=== PATIENT | female | born 1950 | race Two or more races ===

== ENCOUNTER 2016-10-12 07:30 | Inpatient (IN) | payer OTHER, MEDICAID ==
[~2016-10-12] VITALS: Ht 157.5 cm; Wt 62.1 kg
[2016-10-12] VITALS (14 sets, daily range): BP systolic 112–174; BP diastolic 40–87
--- NOTE | 2016-10-12 07:40 | NUR ---
CALLED [facility] SPOKE TO OXANA SAUCEDA: CODE STROKE. DR. TATUM TO CALL BACK
--- NOTE | 2016-10-12 07:40 | NUR ---
RECEIVED VERBAL ORDERS FROM DR. GREEN FOR LIDOCAINE 100MG IVP, ROCURONIUM 100MG IVP AND ETOMIDATE 20MG IVP. ALL ORDERS CARRIED OUT.
--- NOTE | 2016-10-12 07:42 | NUR ---
RSI DONE BY DR. GREEN, RT AT BS. ET SIZE 7 AT 25 CM LIP LINE POSITIVE C02 COLOR CHANGE AT 100%, BILATERAL BREATH SOUNDS PRESENT.
--- NOTE | 2016-10-12 07:43 | NUR ---
DR. TATUM RETURNED AND IS SPEAKING TO DR. GREEN.
--- NOTE | 2016-10-12 07:45 | NUR ---
PT LEFT FOR CT.
[2016-10-12] MEDS ORDERED: CT SWABBABLE VALVE TRANS SET 1 EA INFUS.SET MC ONE (07:48)
[2016-10-12] MEDS ORDERED: IV NS 0.9% 250 ML IV ONE (07:48)
[2016-10-12] MEDS ORDERED: IOHEXOL-350 100 ML VIAL IV ONE (07:48)
--- NOTE | 2016-10-12 08:05 | NUR ---
PT RETURNED FROM CT.
--- NOTE | 2016-10-12 08:06 | NUR ---
DR. NARVAEZ, RADIOLOGY, CALLED RE: CT FINDINGS.
[2016-10-12 08:07] LABS: BASOPHILS % (AUTO) 0.6 % (0.0-2.0); EOSINOPHILS # (AUTO) 0.1 /CMM (0.0-0.7); EOSINOPHILS % (AUTO) 2.1 % (0.0-6.0); HEMATOCRIT 35 % (33-45); HEMOGLOBIN 12.2 g/dL (11.5-14.8); LYMPHOCYTES # (AUTO) 1.8 /CMM (0.8-4.8); LYMPHOCYTES % (AUTO) 32.1 % (20.0-44.0); MEAN CORPUSCULAR HEMOGLOBIN 34 PG (26.0-33.0); MEAN CORPUSCULAR HGB CONC 35 g/dl (31.0-36.0); MEAN CORPUSCULAR VOLUME 97 fL (82-100); MONOCYTES # (AUTO) 0.3 /CMM (0.1-1.30); MONOCYTES % (AUTO) 5.3 % (2.0-12.0); NEUTROPHILS # (AUTO) 3.3 /CMM (1.8-8.9); NEUTROPHILS % (AUTO) 59.9 % (43.0-81.0); PLATELET COUNT (AUTO) 210 /CMM (150-450); RDW COEFFICIENT OF VARIATION 13.5 (11.5-15.0); RED BLOOD CELL COUNT(AUTO) 3.63 MIL/uL (4.0-5.2); WHITE BLOOD COUNT (AUTO) 5.6 K/uL (4.3-11.0)
[2016-10-12 08:08] LABS: INR 0.97 (0.87-1.13); PROTHROMBIN TIME 10.1 SECS (9.5-12.7)
[2016-10-12 08:09] LABS: POTASSIUM 3.9 mmol/L (3.5-5.1)
[2016-10-12 08:10] LABS: CALCIUM, SERUM 9.3 mg/dL (8.5-10.1); CREATININE 2.7 mg/dL (0.6-1.3)
[2016-10-12] MEDS ORDERED: PROPOFOL 100 ML IV ONE (08:33)
[2016-10-12] MEDS ORDERED: IV SET PRIMARY PUMP SET 1 EA INFUS.SET MC ONE ×2 (08:33→14:48)
--- NOTE | 2016-10-12 08:35 | NUR ---
MRI APPROVED BY DR. MONTALVO.
[2016-10-12] MEDS: PROPOFOL 100 ML IV PRN (08:45)
--- NOTE | 2016-10-12 08:45 | NUR ---
PROPOFOL STARTED PER MD ORDERS. 5MCG/KG/HR, TITRATE PER PROTOCOL. PATIENT'S VITALS STABLE. WILL CONTINUE TO MONITOR.
--- NOTE | 2016-10-12 08:50 | NUR ---
TELE NEURO MONITOR AT BEDSIDE, MD CONFERENCED IN. UNABLE TO ASSESS NEURO STATUS. PATIENT IS SEDATED AT THIS TIME. PUPILS ARE EQUAL AND REACTIVE AT THIS TIME.
--- NOTE | 2016-10-12 08:52 | NUR ---
DR. GREEN IS SPEAKING TO DR. TATUM - NEURO AT [facility]
[2016-10-12 09:05] LABS: ABG BASE EXCESS 3.7 mmol/L; ABG OXYGEN SATURATION 99.1 % (92.0-98.5); ABG PCO2 28.8 mmHg (35.0-45.0); ABG PH 7.559 (7.350-7.450); ABG PO2 396.9 mmHg (75.0-100.0); AaDO2 287.3 mmHg; COHb 0.1 % (0.5-1.5); MetHb 0.5 % (0.0-1.5); O2Hb 98.5 % (94.0-97.0); PEEP,BG 0 cm H2O; SITE, ABG Left Brachial; VENT MODE, BG AC 16 500 100%
--- NOTE | 2016-10-12 09:05 | NUR ---
ABG'S RESULTED, VENT CHANGES MADE PER RT. WILL REASSESS
--- NOTE | 2016-10-12 09:15 | NUR ---
CALLED ARIAN GUEVARA RE: PT.
--- NOTE | 2016-10-12 09:15 | NUR ---
SPOKE TO VALERY, AT [facility].
[2016-10-12] MEDS ORDERED: OLAN5TAB6 PO (09:20)
[2016-10-12] MEDS ORDERED: GLIP10TA11 PO (09:20)
[2016-10-12] MEDS ORDERED: METO-306 PO (09:20)
[2016-10-12] MEDS ORDERED: DONE5TAB3 PO (09:20)
[2016-10-12] MEDS ORDERED: ATOR20TA PO (09:20)
[2016-10-12] MEDS ORDERED: CALC667C6 PO (09:20)
[2016-10-12] MEDS ORDERED: FURO80TA3 PO (09:20)
[2016-10-12] MEDS ORDERED: OMEP20TA68 PO (09:20)
[2016-10-12] MEDS ORDERED: ASPI81TA2 PO (09:20)
[2016-10-12] MEDS ORDERED: AMLO10TA2 PO (09:20)
--- NOTE | 2016-10-12 09:20 | NUR ---
RT NOTE ASSISTED MD WITH INTUBATION. PT INTUBATED WITH SIZE 7.0 ETT SECURED @21CM LIP LINE. POSITIVE C02 COLOR CHANGE. BILATERAL B/S SOUNDS NOTED. AIRWAY IS SECURE AND PATENT. PT PLACED ON MD ORDERED VENT SETTINGS. ALARMS ARE SET AND AUDIBLE PER PROTOCOL. [facility] V[facility] PLUGGED INTO RED OUTLET. NO RESPIRATORY DISTRESS NOTED AT THIS TIME. WILL CONTINUE TO MONITOR.
[2016-10-12 09:23] LABS: BILIRUBIN,URINE Negative (NEGATIVE); BLOOD, URINE Small Ery/uL (NEGATIVE); COLOR,URINE Light yellow (YELLOW); KETONES,URINE Negative (NEGATIVE); LEUKOCYTE ESTERASE ,URINE Negative (NEGATIVE); NITRITE, URINE Negative (NEGATIVE); PH,URINE 8.5 (5.0-8.0); PROTEIN,URINE 100 mg/dl (NEGATIVE); UGLUCOSE Negative (NEGATIVE); UROBILINOGEN,URINE 0.2 EU/dL (0.2)
[2016-10-12 09:26] LABS: APPEARANCE,URINE Hazy (CLEAR)
--- NOTE | 2016-10-12 09:26 | NUR ---
PATIENT MORE AWAKE, MOVING EXTREMITIES. HR INCREASED TO 125. PROPOFOL INCREASED TO 10MCG/KG/HR. WILL CONTINUE TO MONITOR.
[2016-10-12] MEDS ORDERED: ETOMIDATE 2 MG/ML VIAL IV ONE (09:30)
[2016-10-12] MEDS ORDERED: LIDOCAINE 100MG/5ML DISP SYR IV ONE (09:30)
[2016-10-12] MEDS ORDERED: ROCURONIUM BROMIDE 50 MG/5 ML IV ONE (09:30)
[2016-10-12 09:34] LABS: BACTERIA,URINE None seen /HPF (None Seen); SQUAMOUS EPITHELIAL CELL,UR Few /HPF (None Seen); WBC,URINE 0-2 /HPF (0-3)
[2016-10-12] MEDS ORDERED: DC PROPOFOL WHEN EXTUBATED XX PRN (10:00)
--- NOTE | 2016-10-12 10:15 | NUR ---
PATIENT STILL MOVING AROUND, LOOKS UNCOMFORTABLE. INCREASED PROPOFOL TO 15 MCG/KG/HR.
--- NOTE | 2016-10-12 10:45 | NUR ---
PATIENT STILL MOVING AROUND, RESTLESS. VITALS REMAIN STABLE. INCREASED PROPOFOL TO 20 MCG/KG/HR. WILL CONTINUE TO MONITOR.
--- NOTE | 2016-10-12 12:05 | NUR ---
REPORT GIVEN TO KAMI DUNCAN FOR ICU ROOM 265.
--- NOTE | 2016-10-12 12:28 | NUR ---
PATIENT TRANSFERRED TO ICU 265 VIA STRETCHER, WITH RT AND RN.
[2016-10-12] MEDS ORDERED: PROPOFOL 100 ML IV PRN ×2 (13:30→15:00)
[2016-10-12] MEDS ORDERED: Z GUARD REMEDY 2 OZ OINT TP PRN (15:00)
[2016-10-12] MEDS ORDERED: ONDANSETRON HCL/PF 4 MG/2 ML VIAL IVP PRN (15:00)
[2016-10-12] MEDS: METOPROLOL SUCCINATE 50 MG TAB.SR.24H PO SCH (15:06)
[2016-10-12] MEDS: CALCIUM ACETATE 667 MG TABLET PO SCH (16:57)
[2016-10-12] MEDS: FUROSEMIDE 80 MG TABLET PO SCH (16:57)
[2016-10-12] MEDS: IV NS 0.9% 1,000 ML IV PRN (16:57)
--- NOTE | 2016-10-12 16:58 | NUR ---
MRI NOT DONE PATIENT ON VENT.
[2016-10-12 17:11] LABS: ABG BASE EXCESS 2.9 mmol/L; ABG OXYGEN SATURATION 97.9 % (92.0-98.5); ABG PCO2 31.3 mmHg (35.0-45.0); ABG PH 7.523 (7.350-7.450); ABG PO2 141.8 mmHg (75.0-100.0); AaDO2 107.4 mmHg; COHb 0.3 % (0.5-1.5); MetHb 0.9 % (0.0-1.5); O2Hb 96.7 % (94.0-97.0); PEEP,BG 5 cm H2O; SITE, ABG Right Brachial
--- NOTE | 2016-10-12 17:22 | NUR ---
BUSINESS SEGMENT MANAGER NOTE 1230: Admitted patient from ER, with Dx, AMS, r/o CVA, respiratory failure. With ETT 7/0 25cm lipline, to vent AC 14 400 FIO2 50%. Skin assessment done, no any wounds noted. SR 70's on the monitor. Vera cath intact, noted with clear yellow urine drained to BSD. Noted with LFA PIV infiltrated, started nwe PIV on LAC g20. Daughter at bedside, wanted to talk to MD, informed Dr. Fu. 1400: S/E by Dr. Fu, spoke with Lisa, daughter [phone] and all questions and concerns were answered. 1630: S/E by Dr. Calloway, with order to turn off sedation and will trial SIMV mode. 1700: ABG done, Dr. Calloway aware with order for extubation. 1715: Extubated patient as ordered, patient tolerated. Patient fully awake, able to do weak cough at this time. No stridor noted. Able to get small ice chips, will continue to monitor.
--- NOTE | 2016-10-12 20:04 | NUR ---
STATEMENT PROCESSOR. INITIAL ASSESSMENT. RECEIVED THE PT REST ON THE BED,PT IS LETHARGIC. OXYGEN 3L VIA NASAL CANNULA. SAT 98%. NO ACUTE DISTRESS NOTED. LAND TITLE EXAMINER SHOWING NSR. IV RT UPPER ARM AVFISTULLA, LT AC 20G. IVF NS 40 ML/H. FC PATENT. URINE DRAINING. AFEBRILE. HOB ELEVATED. TURN AND REPOSITION Q2H. WILL CONTINUE TO MONITOR VITALS.
[2016-10-12] MEDS: ATORVASTATIN 10 MG TABLET PO SCH (22:13)
[2016-10-12] MEDS: OLANZAPINE 5 MG/TAB.RAPDIS PO SCH (22:13)
[2016-10-13] VITALS (21 sets, daily range): BP systolic 110–146; BP diastolic 56–78
--- NOTE | 2016-10-13 03:47 | NUR ---
PROFESSIONAL HEALTHCARE REPRESENTATIVE. AM CARE. ORAL CARE, BED BATH GIVEN. LINEN CHANGED. REMAINING SAME OXYGEN TOLERATED WELL. SAT 98%, NO ACUTE DISTRESS NOTED. ALUMINUM CAN COLLECTOR SHOWING S TACH. HOB ELEVATED/ FC PATENT URINE DRAININGMHOB ELEVATED. TURN AND REPOSITION Q2H. IV LT HAND. IVF NS 125ML.H. WILL CRN AND REPOSITION Q2H, WILL CONTONUR TO MONIOTOR VITALS.
[2016-10-13 04:35] LABS: BASOPHILS % (AUTO) 0.6 % (0.0-2.0); EOSINOPHILS # (AUTO) 0.1 /CMM (0.0-0.7); EOSINOPHILS % (AUTO) 1.6 % (0.0-6.0); HEMATOCRIT 37 % (33-45); HEMOGLOBIN 12.4 g/dL (11.5-14.8); LYMPHOCYTES % (AUTO) 27.5 % (20.0-44.0); MEAN CORPUSCULAR HEMOGLOBIN 33 PG (26.0-33.0); MEAN CORPUSCULAR HGB CONC 34 g/dl (31.0-36.0); MEAN CORPUSCULAR VOLUME 98 fL (82-100); MONOCYTES # (AUTO) 0.6 /CMM (0.1-1.30); MONOCYTES % (AUTO) 8.8 % (2.0-12.0); NEUTROPHILS # (AUTO) 4.5 /CMM (1.8-8.9); NEUTROPHILS % (AUTO) 61.5 % (43.0-81.0); PLATELET COUNT (AUTO) 249 /CMM (150-450); RDW COEFFICIENT OF VARIATION 13.6 (11.5-15.0); RED BLOOD CELL COUNT(AUTO) 3.79 MIL/uL (4.0-5.2); WHITE BLOOD COUNT (AUTO) 7.3 K/uL (4.3-11.0)
[2016-10-13 04:55] LABS: ALBUMIN 3.2 g/dL (3.4-5.0); BILIRUBIN,TOTAL 0.7 mg/dL (0.2-1.0); CALCIUM, SERUM 9.1 mg/dL (8.5-10.1); CREATININE 4.8 mg/dL (0.6-1.3); PHOSPHORUS 4.5 mg/dL (2.5-4.9); POTASSIUM 3.9 mmol/L (3.5-5.1); TOTAL PROTEIN, SERUM 6.6 g/dL (6.4-8.2)
[2016-10-13 05:02] LABS: THYROID STIMULATING HORMONE 1.709 uIU/mL (0.358-3.74)
--- NOTE | 2016-10-13 08:00 | NUR ---
PT SLEEPING, EASILY ABUSABLE. PUPILS EQUAL, REACTIVE, NO FACIAL DROOP NOTED, BILAT UPPER AND LOWER EXTREMITIES ARE WEEK.
[2016-10-13] MEDS: FUROSEMIDE 80 MG TABLET PO SCH ×2 (09:35→17:26)
[2016-10-13] MEDS: METOPROLOL SUCCINATE 50 MG TAB.SR.24H PO SCH (09:35)
[2016-10-13] MEDS: AMLODIPINE BESYLATE 10 MG TABLET PO SCH (09:36)
[2016-10-13] MEDS: PANTOPRAZOLE 40 MG TABLET.DR PO SCH (09:36)
[2016-10-13] MEDS: DONEPEZIL 5 MG TABLET PO SCH (09:36)
[2016-10-13] MEDS: ASPIRIN 81 MG TAB.CHEW PO SCH (09:36)
[2016-10-13] MEDS: CALCIUM ACETATE 667 MG TABLET PO SCH ×3 (09:36→18:10)
[2016-10-13] MEDS ORDERED: KETOROLAC TROMETHAMINE 15 MG/ML VIAL IV ONE (11:18)
--- NOTE | 2016-10-13 15:30 | NUR ---
PT TO MRI BY MING. VSS, TOLERATING PROCEDURE WELL.
--- NOTE | 2016-10-13 16:25 | NUR ---
ASSISTANT INVENTORY MANAGER NOTES RECEIVED TRANSFER FROM ALYSSIA, REPORT GIVEN BY GEMINI DUNCAN. PATIENT IN STABLE CONDITION, NO APPARENT DISTRESS NOTED, DENIES PAIN, DENIES SOB.ON TELE MONITORING SR 68, IV LINE ON LEFT AC PATENT. BRUIT AND TRILL AUSCULTATED FROM GIOVANNA AV FISTULA. ALL NEEDS MET, KEPT CLEAN AND DRY. WILL CONTINUE TO MONITOR
--- NOTE | 2016-10-13 17:00 | NUR ---
PT TRANSFERRED TO TELE ROOM 308-2, VSS, DENIES PAIN, SOB.
[2016-10-13] MEDS: IV NS 0.9% 1,000 ML IV PRN (17:32)
--- NOTE | 2016-10-13 19:10 | NUR ---
ELECTRO MECHANICAL ASSEMBLER CLOSING NOTES PATIENT IN BED, A/O X 2, IN NO APPARENT DISTRESS. ALL DUE MEDS GIVEN, ALL NEEDS MET. IV LINE ON LEFT AC PATENT, INFUSING NS AT 40ML/HR. BRUIT AND THRILL UPON AUSCULTATION ON GIOVANNA AV FISTULA. WILL ENDORSE CARE TO PM SHIFT.
--- NOTE | 2016-10-13 19:35 | NUR ---
RN OPENING NOTES RECEIVED REPORT FROM TAMMY RNKAYLYN. FOUND Pt AWAKE RESTING IN BED. Pt IS A/OX2, MAINLY BRITISH SPEAKING, BUT UNDERSTANDS HEBREW, ABLE TO MAKE NEEDS KNOWN. IV ACCESS ON LAC #20G, IVF NS @40ML/HR. NO S/S OF ACUTE DISTRESS OR SOB NOTED. SAFETY MEASURES IN PLACE. BED LOW, LOCKED, HOB ELEVATED, SIDE RAILS UP, CALL LIGHT AND BEDSIDE TABLE WITHIN REACH. WILL CONTINUE TO MONITOR Pt THROUGHOUT THE NIGHT FOR SAFETY.
--- NOTE | 2016-10-13 20:00 | NUR ---
RN NOTES CODE STROKE CAME BACK NEGATIVE.
[2016-10-13] MEDS: OLANZAPINE 5 MG/TAB.RAPDIS PO SCH (22:49)
[2016-10-13] MEDS: ATORVASTATIN 10 MG TABLET PO SCH (22:49)
[2016-10-14] VITALS: BP 138/64
[2016-10-14] MEDS ORDERED: DEXTROSE 50%-WATER 50 ML DISP.SYRIN IV PRN (02:00)
[2016-10-14 04:00] VITALS: BP_SYST 133; BP_SYST 153; BP_DIAS 64
--- NOTE | 2016-10-14 06:32 | NUR ---
RN CLOSING NOTES NO SIGNIFICANT CHANGES TO Pt's CONDITION. ALL NEEDS MET AND ATTENDED TO. NO S/S OF ACUTE DISTRESS OR SOB NOTED DURING THE NIGHT. SAFETY MEASURES IN PLACE. WILL ENDORSE TO DAYSHIFT RN FOR Pt's JOVON. TELE READING SR 70.
[2016-10-14 07:22] VITALS: BP 140/66
[2016-10-14] MEDS ORDERED: BLOOD SUGAR DIAGNOSTIC 1 EACH STRIP IN SCH (07:30)
[2016-10-14 08:00] VITALS: BP 140/66
--- NOTE | 2016-10-14 08:00 | NUR ---
RECEIVED PT. RECEIVED REPORT FROM PM NURSE. PT IS AWAKE A/O X 2. CHINESE SPEAKING BUT UNDERSTANDS ERITREAN. AV FISTULA LOCATED ON R ARM. IV LINE IN LEFT AC, 20 GAUGE RUNNING NS AT 40 ML/HR. NO S/S OF SOB, DISTRESS, OR PAIN NOTED. SAFETY MEASURES IN PLACE, BED IN LOWEST POSITION, CALL LIGHT WITHIN REACH. WILL CONTINUE TO MONITOR.
[2016-10-14] MEDS: FUROSEMIDE 80 MG TABLET PO SCH ×2 (08:32→18:14)
[2016-10-14] MEDS: CALCIUM ACETATE 667 MG TABLET PO SCH ×3 (08:32→18:14)
[2016-10-14] MEDS: DONEPEZIL 5 MG TABLET PO SCH (08:32)
[2016-10-14] MEDS: METOPROLOL SUCCINATE 50 MG TAB.SR.24H PO SCH (08:34)
[2016-10-14] MEDS: PANTOPRAZOLE 40 MG TABLET.DR PO SCH (08:35)
[2016-10-14] MEDS: ASPIRIN 81 MG TAB.CHEW PO SCH (08:36)
[2016-10-14] MEDS: AMLODIPINE BESYLATE 10 MG TABLET PO SCH (08:36)
[2016-10-14] MEDS: BLOOD SUGAR DIAGNOSTIC 1 EACH STRIP IN SCH ×4 (08:51→22:34)
--- NOTE | 2016-10-14 10:36 | NUR ---
[facility] [place] NOTES PER DR. MICHAEL RODRIGUEZ TO DC TELEMETRY.
[2016-10-14] MEDS ORDERED: MENTHOL/CETYLPYRD (CEPACOL) 1 LOZ LOZENGE PO PRN (13:00)
[2016-10-14] MEDS: DOCUSATE SODIUM 100 MG CAPSULE PO SCH ×2 (13:56→18:14)
[2016-10-14] MEDS: SENNOSIDES 8.6 MG TABLET PO SCH ×2 (13:58→22:29)
[2016-10-14] MEDS ORDERED: POLYETHYLENE GLYCOL 3350 17 GM POWD.PACK PO ONE (14:00)
[2016-10-14] MEDS: INSULIN REGULAR, HUMAN 100 UNIT/ML 3 ML VIAL SQ PRN ×2 (14:03→22:37)
[2016-10-14 16:00] VITALS: BP 125/63
--- NOTE | 2016-10-14 19:00 | NUR ---
MS RN OPENING NOTES: PT IS AWAKE A/O X 2. AUSTRIAN SPEAKING BUT UNDERSTANDS LATVIAN. AV FISTULA LOCATED ON R ARM. NO IV ACCESS AT THIS TIME AND MD AWARE ENDORSED FROM AM NURSE. NO S/S OF SOB, DISTRESS, OR PAIN NOTED. SAFETY MEASURES IN PLACE. CALL LIGHT WITHIN PT'S REACH. BED KEPT IN LOCKED, LOWEST POSITION, AND SIDE RAILS X 2 UP. WILL CONTINUE TO MONITOR PT.
--- NOTE | 2016-10-14 19:07 | NUR ---
MS RN NOTE PT AWAKE AND STABLE IN BED. ALERT AND ORIENTED X 4. PRIMARILY PORTUGUESE SPEAKING, HOWEVER UNDERSTANDS SETSWANA. AV FISTULA LOCATED ON R ARM. HEMODIALYSIS PERFORMED TODAY BETWEEN 1500 AND 1900. SAFETY PRECAUTIONS PUT IN TO PLACE. BED LOWERED TO THE LOWEST POSITION, CALL LIGHT WITHIN REACH. WILL ENDORSE CARE OF PT TO PM NURSE.
[2016-10-14 20:00] VITALS: BP 132/72
[2016-10-14] MEDS: ATORVASTATIN 10 MG TABLET PO SCH (22:29)
[2016-10-14] MEDS: OLANZAPINE 5 MG/TAB.RAPDIS PO SCH (22:29)
--- NOTE | 2016-10-14 22:31 | NUR ---
MS RN NOTES: BLOOD SUGAR WAS 296. 6 UNITS OF INSULIN WAS GIVEN. WILL CONTINUE TO MONITOR PT.
[2016-10-15] MEDS: BLOOD SUGAR DIAGNOSTIC 1 EACH STRIP IN SCH (06:10)
[2016-10-15 06:30] LABS: BASOPHILS % (AUTO) 0.2 % (0.0-2.0); EOSINOPHILS # (AUTO) 0.1 /CMM (0.0-0.7); EOSINOPHILS % (AUTO) 1.6 % (0.0-6.0); HEMATOCRIT 35 % (33-45); HEMOGLOBIN 12.1 g/dL (11.5-14.8); LYMPHOCYTES # (AUTO) 1.3 /CMM (0.8-4.8); LYMPHOCYTES % (AUTO) 14.9 % (20.0-44.0); MEAN CORPUSCULAR HEMOGLOBIN 33 PG (26.0-33.0); MEAN CORPUSCULAR HGB CONC 34 g/dl (31.0-36.0); MEAN CORPUSCULAR VOLUME 97 fL (82-100); MONOCYTES # (AUTO) 0.6 /CMM (0.1-1.30); MONOCYTES % (AUTO) 7.2 % (2.0-12.0); NEUTROPHILS # (AUTO) 6.7 /CMM (1.8-8.9); NEUTROPHILS % (AUTO) 76.1 % (43.0-81.0); PLATELET COUNT (AUTO) 210 /CMM (150-450); RDW COEFFICIENT OF VARIATION 13.1 (11.5-15.0); RED BLOOD CELL COUNT(AUTO) 3.61 MIL/uL (4.0-5.2); WHITE BLOOD COUNT (AUTO) 8.8 K/uL (4.3-11.0)
[2016-10-15 06:53] LABS: CALCIUM, SERUM 8.6 mg/dL (8.5-10.1); CREATININE 4.8 mg/dL (0.6-1.3); MAGNESIUM 1.7 mg/dL (1.8-2.4); PHOSPHORUS 3.7 mg/dL (2.5-4.9); POTASSIUM 3.9 mmol/L (3.5-5.1)
--- NOTE | 2016-10-15 07:05 | NUR ---
MS RN CLOSING NOTES: ALL NEEDS WERE ATTENDED AND ANTICIPATED FOR. PT IS AWAKE A/O X 2. UZBEK SPEAKING BUT UNDERSTANDS BENGALI. AV FISTULA LOCATED ON R ARM. NO IV ACCESS. NO S/S OF SOB, DISTRESS, OR PAIN NOTED. SAFETY MEASURES IN PLACE. CALL LIGHT WITHIN PT'S REACH. BED KEPT IN LOCKED, LOWEST POSITION, AND SIDE RAILS X 2 UP. ENDORSED TO AM NURSE FOR JOVON.
[2016-10-15] MEDS: INSULIN REGULAR, HUMAN 100 UNIT/ML 3 ML VIAL SQ PRN (07:25)
[2016-10-15 08:00] VITALS: BP 133/66
--- NOTE | 2016-10-15 08:00 | NUR ---
RN OPENING NOTES RECEIVED PATIENT ON BED, AWAKE, ALERT AND ORIENTED X 3. NO ACUTE DISTRESS NOTED. DENIES ANY PAIN OR DISCOMFORT. PATIENT HAS BRUISES ON LEFT FOREARM. KEPT PATIENT COMFORTABLE AND SAFE. BED IN LOW POSITION, CALL LIGHT WITHIN REACH. WILL CONTINUE TO MONITOR.
[2016-10-15] MEDS: PANTOPRAZOLE 40 MG TABLET.DR PO SCH (08:39)
[2016-10-15] MEDS: CALCIUM ACETATE 667 MG TABLET PO SCH (08:39)
[2016-10-15] MEDS: DOCUSATE SODIUM 100 MG CAPSULE PO SCH (08:39)
[2016-10-15] MEDS: FUROSEMIDE 80 MG TABLET PO SCH (08:40)
[2016-10-15] MEDS: ASPIRIN 81 MG TAB.CHEW PO SCH (08:40)
[2016-10-15] MEDS: DONEPEZIL 5 MG TABLET PO SCH (08:41)
[2016-10-15] MEDS: METOPROLOL SUCCINATE 50 MG TAB.SR.24H PO SCH (08:42)
[2016-10-15] MEDS: AMLODIPINE BESYLATE 10 MG TABLET PO SCH (08:42)
--- NOTE | 2016-10-15 10:00 | NUR ---
D/C SIMPSON CATHETER. PATIENT TOLERATED WELL.
[2016-10-15 11:15] VITALS: BP 130/67
--- NOTE | 2016-10-15 11:30 | NUR ---
PATIENT FOR DISCHARGE. PER PATIENT, NO HOME MEDICATIONS BROUGHT IN TO THE HOSPITAL.
--- NOTE | 2016-10-15 11:40 | NUR ---
PATIENT DISCHARGE ACCOMPANIED BY AND ONLINE CONTENT EDITORIRENE. PATIENT IN STABLE CONDITION, VITAL SIGNS WNL. DISCHARGE TEACHING AND EXITCARE DONE.
== END 2016-10-15 11:41 | disposition home or self-care (01) | DRG 208 ==
LOC: ER 07:31 → ICU 12:20 → MED 10-13 15:29 → TELE 10-13 22:43 → MED 10-14 10:28
PROVIDERS: ADMIT Nurse Practitioner Acute Care; ATTEND Nurse Practitioner Acute Care
PROC: 5A1935Z Respiratory Ventilation, Less than 24 Consecutive Hours (ICD-10-PCS; principal; 2016-10-12)
PROC: 0BH17EZ Insertion of Endotracheal Airway into Trachea, Via Natural or Artificial Opening (ICD-10-PCS; 2016-10-12)
PROC: 5A1D00Z (ICD-10-PCS; 2016-10-14)
DX: J96.00 Acute respiratory failure, unspecified whether with hypoxia or hypercapnia (principal); N18.6 End stage renal disease; G93.40 Encephalopathy, unspecified; I12.0 Hypertensive chronic kidney disease with stage 5 chronic kidney disease or end stage renal disease; E87.3 Alkalosis; E87.8 Other disorders of electrolyte and fluid balance, not elsewhere classified; K21.9 Gastro-esophageal reflux disease without esophagitis; Z79.899 Other long term (current) drug therapy; Z99.2 Dependence on renal dialysis; E11.22 Type 2 diabetes mellitus with diabetic chronic kidney disease; E86.0 Dehydration; R42 Dizziness and giddiness; F03.90 Unspecified dementia, unspecified severity, without behavioral disturbance, psychotic disturbance, mood disturbance, and anxiety; M20.5X1 Other deformities of toe(s) (acquired), right foot; E83.9 Disorder of mineral metabolism, unspecified
CPT/HCPCS: 36415; 36600; 70450-TC; 70496-TC; 70498-TC; 70551-TC; 71010-TC; 76536-TC; 80048-TC; 80053-TC; 80061-TC; 81000-TC; 82803-TC; 82962-TC; 83735-TC; 84100-TC; 84443-TC; 84484-TC; 85025-TC; 85730-TC; 87081-TC; 93307-TC; 94002-TC; 94799-TC; 95819-TC; A4606; J1815; J1885; J3490; J7030; J7050; Q9967; Z7610

== ENCOUNTER 2021-09-20 03:11 | Emergency (ER) | payer OTHER ==
[~2021-09-20] VITALS: Ht 167.6 cm; Wt 54.0 kg
[~2021-09-20 03:11] MED LIST: AMLO-213 PO; ASPI-1169 PO; ATOR20TA PO; CALC667C6 PO; DONE5TAB7 PO; FURO80TA3 PO; GLIP10TA11 PO; METO-358 PO; OLAN5TAB6 PO; OMEP20TA5 PO
--- NOTE | 2021-09-20 03:20 | NUR ---
PT [id number] FROM HOME HYPOGLYCEMIA REPORTED AT 59 GIVEN 125ML IV D10 AND 25GM ORAL GLUCOSE. PT AWAKE AND RESPONSIVE. TOLERATING R/A WELL WITH NO SOB. CONNECTED PT TO POX AND MONITOR. SAFETY MEASURES IN PLACE.
--- NOTE | 2021-09-20 03:45 | NUR ---
CALLED PT'S TO VERIFY PT'S MENTAL STATUS. PT IS CURRENTLY NON VERBAL. PER , PT IS VERBAL AND NOT NORMAL FOR HER TO BE NOT TALKING. DR. LUDIN VAN ASKED THAT THE COMES TO THE ER. TO MAKE SURE THAT SHE AT HER BASELINE.
--- NOTE | 2021-09-20 03:58 | NUR ---
DIGITAL MARKETING PROGRAM MANAGER AT PT'S BEDSIDE
[2021-09-20 04:06] LABS: BASOPHILS % (AUTO) 0.9 % (0.0-2.0); EOSINOPHILS % (AUTO) 2.8 % (0.0-6.0); HEMATOCRIT 34 % (33-45); HEMOGLOBIN 11.1 g/dL (11.5-14.8); LYMPHOCYTES # (AUTO) 0.6 K/uL (0.8-4.8); LYMPHOCYTES % (AUTO) 13.2 % (20.0-44.0); MEAN CORPUSCULAR HGB CONC 33 g/dl (31.0-36.0); MEAN CORPUSCULAR VOLUME 103 fL (82-100); MONOCYTES # (AUTO) 0.5 K/uL (0.1-1.30); MONOCYTES % (AUTO) 10.1 % (2.0-12.0); NEUTROPHILS # (AUTO) 3.4 K/uL (1.8-8.9); PLATELET COUNT (AUTO) 206 K/uL (150-450); RED BLOOD CELL COUNT(AUTO) 3.25 MIL/uL (4.0-5.2); WHITE BLOOD COUNT (AUTO) 4.7 K/uL (4.3-11.0)
[2021-09-20 04:20] LABS: ALANINE AMINOTRANSFERASE 19 U/L (12-78); ALBUMIN 3.3 g/dL (3.4-5.0); ALCOHOL, BLOOD < 3 mg/dL (0-0); ALKALINE PHOSPHATASE 99 U/L (46-116); ASPARTATE AMINOTRANSFERASE 15 U/L (15-37); BILIRUBIN,DIRECT 0.1 mg/dL (0.0-0.2); BILIRUBIN,TOTAL 0.5 mg/dL (0.2-1.0); CALCIUM, SERUM 10.2 mg/dL (8.5-10.1); CARBON DIOXIDE 32 mmol/L (21-32); CHLORIDE 96 mmol/L (98-107); CREATININE 7.2 mg/dL (0.6-1.3); GLUCOSE 222 mg/dL (74-106); POTASSIUM 3.9 mmol/L (3.5-5.1); SODIUM SERUM 137 mmol/L (136-145); TOTAL PROTEIN, SERUM 6.7 g/dL (6.4-8.2); UREA NITROGEN, BLOOD 41 mg/dL (7-18)
--- NOTE | 2021-09-20 04:27 | NUR ---
PT TAKEN TO CT VIA MING
[2021-09-20 04:29] LABS: THYROID STIMULATING HORMONE 4.409 uIU/mL (0.358-3.74)
--- NOTE | 2021-09-20 05:07 | NUR ---
ACCTANNER BS 167
--- NOTE | 2021-09-20 08:06 | NUR ---
CALLED RADIOLOGY TO FOLLOW UP RESULT ON CT SCAN AND XRAY.
--- NOTE | 2021-09-20 08:48 | NUR ---
IV removed. Catheter intact and site benign. Pressure and 4x4 applied to site. No bleeding noted. Patient discharged to home in stable condition. Written and verbal after care instructions given. Patient verbalizes understanding of instruction.
[2021-09-20 08:49] VITALS: BP 125/65
== END 2021-09-20 08:49 | disposition home or self-care (01) ==
LOC: ER 03:29
DX: E11.649 Type 2 diabetes mellitus with hypoglycemia without coma (principal); T38.3X5A Adverse effect of insulin and oral hypoglycemic [antidiabetic] drugs, initial encounter; R41.82 Altered mental status, unspecified; E11.22 Type 2 diabetes mellitus with diabetic chronic kidney disease; I12.9 Hypertensive chronic kidney disease with stage 1 through stage 4 chronic kidney disease, or unspecified chronic kidney disease; N18.9 Chronic kidney disease, unspecified; K21.9 Gastro-esophageal reflux disease without esophagitis; Z88.8 Allergy status to other drugs, medicaments and biological substances; Z79.899 Other long term (current) drug therapy; Y92.89 Other specified places as the place of occurrence of the external cause
CPT/HCPCS: 36415; 70450-TC; 71045-TC; 80048-TC; 80076-TC; 82962-TC; 84443-TC; 85025-TC; 85730-TC; G0480

== ENCOUNTER 2022-08-11 12:06 | Inpatient (IN) | payer OTHER ==
[~2022-08-11] VITALS: Ht 167.6 cm; Wt 54.4 kg
[2022-08-11] MEDS ORDERED: ONDANSETRON HCL/PF 4 MG/2 ML VIAL ONE (12:42)
--- NOTE | 2022-08-11 12:43 | NUR ---
director specialty at bedside
--- NOTE | 2022-08-11 12:49 | NUR ---
xray at bedside
[2022-08-11 12:51] LABS: BASOPHILS # (AUTO) 0.1 K/uL (0.0-0.2); BASOPHILS % (AUTO) 1.1 % (0.0-2.0); EOSINOPHILS % (AUTO) 0.9 % (0.0-6.0); HEMATOCRIT 35 % (33-45); HEMOGLOBIN 11.2 g/dL (11.5-14.8); LYMPHOCYTES # (AUTO) 1.2 K/uL (0.8-4.8); LYMPHOCYTES % (AUTO) 21.3 % (20.0-44.0); MEAN CORPUSCULAR HGB CONC 32 g/dl (31.0-36.0); MEAN CORPUSCULAR VOLUME 97 fL (82-100); MONOCYTES # (AUTO) 0.5 K/uL (0.1-1.30); MONOCYTES % (AUTO) 9.1 % (2.0-12.0); NEUTROPHILS # (AUTO) 3.8 K/uL (1.8-8.9); NEUTROPHILS % (AUTO) 67.6 % (43.0-81.0); PLATELET COUNT (AUTO) 246 K/uL (150-450); RED BLOOD CELL COUNT(AUTO) 3.57 MIL/uL (4.0-5.2); WHITE BLOOD COUNT (AUTO) 5.6 K/uL (4.3-11.0)
[2022-08-11] MEDS ORDERED: IV NS 0.9% 500 ML BAG IV ONE (13:00)
[2022-08-11] MEDS ORDERED: ONDANSETRON HCL/PF 4 MG/2 ML VIAL IVP ONE (13:00)
--- NOTE | 2022-08-11 13:09 | NUR ---
covid swab collected and sent to lab
[2022-08-11] MEDS ORDERED: GELATIN SPONGE,ABSORBABLE 1 SPONGE SPONGE TP ONE (13:15)
[2022-08-11 13:22] LABS: ALANINE AMINOTRANSFERASE 16 U/L (12-78); ALBUMIN 3.1 g/dL (3.4-5.0); ALKALINE PHOSPHATASE 121 U/L (46-116); ASPARTATE AMINOTRANSFERASE 13 U/L (15-37); BILIRUBIN,DIRECT 0.2 mg/dL (0.0-0.2); BILIRUBIN,TOTAL 0.6 mg/dL (0.2-1.0); CALCIUM, SERUM 9.3 mg/dL (8.5-10.1); CARBON DIOXIDE 30 mmol/L (21-32); CHLORIDE 95 mmol/L (98-107); CREATININE 4.6 mg/dL (0.6-1.3); POTASSIUM 5.3 mmol/L (3.5-5.1); SODIUM SERUM 135 mmol/L (136-145); TOTAL PROTEIN, SERUM 6.4 g/dL (6.4-8.2); UREA NITROGEN, BLOOD 20 mg/dL (7-18)
--- NOTE | 2022-08-11 13:26 | NUR ---
MOVE SHEET SUBMITTED.
[2022-08-11 13:29] LABS: GLUCOSE 403 mg/dL (74-106)
--- NOTE | 2022-08-11 14:06 | NUR ---
CALLED [facility] [phone] DR. BIPIN Smith WILL CALL BACK.
--- NOTE | 2022-08-11 14:19 | NUR ---
CALLED [facility] [phone] WILL BE PAGED.
[2022-08-11] MEDS ORDERED: MORPHINE SULFATE INJ 2 MG/ML DISP.SYRIN IV PRN (14:30)
[2022-08-11] MEDS ORDERED: ACETAMINOPHEN 325 MG TABLET PO PRN (14:30)
[2022-08-11] MEDS ORDERED: DEXTROSE 50%-WATER 50 ML DISP.SYRIN IV PRN ×2 (14:30)
[2022-08-11] MEDS ORDERED: INSULIN REGULAR, HUMAN 100 UNIT/ML 3 ML VIAL SQ PRN (14:30)
[2022-08-11] MEDS ORDERED: ONDANSETRON HCL/PF 4 MG/2 ML VIAL IVP PRN (14:30)
[2022-08-11] MEDS: BLOOD SUGAR DIAGNOSTIC 1 EACH STRIP IN SCH ×4 (14:30→22:04)
[2022-08-11 14:52] LABS: BASOPHILS # (AUTO) 0.1 K/uL (0.0-0.2); BASOPHILS % (AUTO) 0.7 % (0.0-2.0); EOSINOPHILS % (AUTO) 0.3 % (0.0-6.0); HEMATOCRIT 31 % (33-45); HEMOGLOBIN 10.2 g/dL (11.5-14.8); LYMPHOCYTES # (AUTO) 0.9 K/uL (0.8-4.8); LYMPHOCYTES % (AUTO) 9.4 % (20.0-44.0); MEAN CORPUSCULAR HGB CONC 33 g/dl (31.0-36.0); MEAN CORPUSCULAR VOLUME 97 fL (82-100); MONOCYTES # (AUTO) 0.5 K/uL (0.1-1.30); MONOCYTES % (AUTO) 5.8 % (2.0-12.0); NEUTROPHILS # (AUTO) 7.9 K/uL (1.8-8.9); NEUTROPHILS % (AUTO) 83.8 % (43.0-81.0); PLATELET COUNT (AUTO) 221 K/uL (150-450); RED BLOOD CELL COUNT(AUTO) 3.19 MIL/uL (4.0-5.2); WHITE BLOOD COUNT (AUTO) 9.5 K/uL (4.3-11.0)
--- NOTE | 2022-08-11 15:56 | NUR ---
GUEST EXPERIENCE CAPTAIN AT BEDSIDE
[2022-08-11] MEDS ORDERED: VANCOMYCIN 1 GM in IV D5W 250 ML IV ONE (16:00)
[2022-08-11] MEDS ORDERED: CEFTRIAXONE 1GM BAG (ER ONLY) 50 ML IV ONE (16:00)
--- NOTE | 2022-08-11 16:27 | NUR ---
room 115-1
[2022-08-11] MEDS ORDERED: INSULIN REGULAR, HUMAN 100 UNIT/ML 10 ML VIAL SQ ONE (16:30)
[2022-08-11 16:42] LABS: ALANINE AMINOTRANSFERASE 15 U/L (12-78); ALBUMIN 2.7 g/dL (3.4-5.0); ALKALINE PHOSPHATASE 120 U/L (46-116); ASPARTATE AMINOTRANSFERASE 6 U/L (15-37); BILIRUBIN,TOTAL 0.4 mg/dL (0.2-1.0); CALCIUM, SERUM 8.3 mg/dL (8.5-10.1); CARBON DIOXIDE 31 mmol/L (21-32); CHLORIDE 102 mmol/L (98-107); CREATININE 4.7 mg/dL (0.6-1.3); GLUCOSE 325 mg/dL (74-106); POTASSIUM 5.9 mmol/L (3.5-5.1); SODIUM SERUM 137 mmol/L (136-145); TOTAL PROTEIN, SERUM 5.4 g/dL (6.4-8.2); UREA NITROGEN, BLOOD 25 mg/dL (7-18)
--- NOTE | 2022-08-11 16:43 | NUR ---
REPORT RECEIVED FROM ER
--- NOTE | 2022-08-11 16:43 | NUR ---
report given to filomena for continuation of care
--- NOTE | 2022-08-11 17:00 | NUR ---
PATIENT RECEIVED FROM ER. PATIENT WAS ALERT AND ORIENTED X4. CALM AND COOPERATIVE. HOWEVER, PATIENT BECAME ALERT AND ORIENTED X0. SHE COULD NOT ANSWER QUESTIONS OR HOLD HER GAZE. DOCTOR DEE NOTIFIED. ORDERED STAT CT WO CONTRAST PER MD ORDER. CONTACTED DAUGHTER ELIZABETH WHO RELAYED THAT PATIENT BECOMES UNRESPONSIVE WHENEVER HOSPITALIZED.
[2022-08-11] MEDS: INSULIN REGULAR, HUMAN 100 UNIT/ML 3 ML VIAL SQ PRN (19:01)
--- NOTE | 2022-08-11 19:30 | NUR ---
RN NOTES RECEIVED REPORT FROM MORNING RN. PATIENT IN BED A/O X3 WITH PERIODS OF FORGETFULNESS. ON ROOM AIR SATING 95% NOT ON RESPIRATORY DISTRESS BREATHING EVEN AND UNLABORED. WITH IV ACCESS AT L AC # 20 PATENT FLUSHES WELL. WITH R AV FISTULA NO BLEEDING NOTED AT THIS TIME. ALL SAFETY MEASURES IN PLACE AT ALL TIMES. HOB ELEVATED. CALL LIGHT WITHIN REACH. WILL CLOSELY MONITOR THE PATIENT
[2022-08-11 20:00] VITALS: BP 113/46
--- NOTE | 2022-08-11 20:26 | NUR ---
SENIOR ARCHITECT/DESIGN MANAGER CLOSING NOTE PATIENT IN BED WATCHING TV AND EATING. CALM AND COOPERATIVE. ON ROOM AIR WITH NO S/S OF RESPIRATORY DISTRESS OR SOB. ON TELE MONITOR. IV ACCESS ON LAC 20G. ALL DUE MEDS GIVEN. WILL ENDORSE TO ONCOMING SHIFT FOR JOVON.
[2022-08-11] MEDS: *INSULIN REGULAR(HUMULIN R)HUM 100 UNIT/ML VIAL SQ PRN (22:06)
[2022-08-12] VITALS (9 sets, daily range): BP systolic 92–128; BP diastolic 44–75
--- NOTE | 2022-08-12 06:33 | NUR ---
RN NOTES PATIENT REMAINS STABLE NO SIGNIFICANT CHANGES IN HEALTH CONDITION. ALL DUE MEDS GIVEN ORDERED. ALL NEEDS ATTENDED. FREQUENT VISUAL MONITORING RENDERED. WILL ENDORSED TO MORNING SHIFT FOR JOVON
[2022-08-12 07:12] LABS: BASOPHILS % (AUTO) 0.6 % (0.0-2.0); EOSINOPHILS % (AUTO) 1.2 % (0.0-6.0); HEMATOCRIT 24 % (33-45); HEMOGLOBIN 7.8 g/dL (11.5-14.8); LYMPHOCYTES # (AUTO) 1.5 K/uL (0.8-4.8); LYMPHOCYTES % (AUTO) 25.4 % (20.0-44.0); MEAN CORPUSCULAR HGB CONC 32 g/dl (31.0-36.0); MEAN CORPUSCULAR VOLUME 99 fL (82-100); MONOCYTES # (AUTO) 0.5 K/uL (0.1-1.30); MONOCYTES % (AUTO) 8.1 % (2.0-12.0); NEUTROPHILS # (AUTO) 3.7 K/uL (1.8-8.9); NEUTROPHILS % (AUTO) 64.7 % (43.0-81.0); PLATELET COUNT (AUTO) 189 K/uL (150-450); RED BLOOD CELL COUNT(AUTO) 2.43 MIL/uL (4.0-5.2); WHITE BLOOD COUNT (AUTO) 5.8 K/uL (4.3-11.0)
[2022-08-12 07:38] LABS: ALANINE AMINOTRANSFERASE 13 U/L (12-78); ALBUMIN 2.6 g/dL (3.4-5.0); ALKALINE PHOSPHATASE 82 U/L (46-116); ASPARTATE AMINOTRANSFERASE 13 U/L (15-37); BILIRUBIN,TOTAL 0.4 mg/dL (0.2-1.0); CALCIUM, SERUM 8.7 mg/dL (8.5-10.1); CARBON DIOXIDE 26 mmol/L (21-32); CHLORIDE 102 mmol/L (98-107); CREATININE 6.2 mg/dL (0.6-1.3); GLUCOSE 146 mg/dL (74-106); POTASSIUM 5.5 mmol/L (3.5-5.1); SODIUM SERUM 139 mmol/L (136-145); TOTAL PROTEIN, SERUM 5.2 g/dL (6.4-8.2); UREA NITROGEN, BLOOD 34 mg/dL (7-18)
--- NOTE | 2022-08-12 07:41 | NUR ---
nafisa rn note patient in bed . alert oriented, on ra no sob noted at this time, on tele monitor sr hr 80 lt ac hl intact and flushed well , rt av fistula in place no s\s bleeding noted, with bruit sound noted, bed in lowest and locked position , call light within reach, safety measure implemented, will cont to monitor closely
[2022-08-12] MEDS: BLOOD SUGAR DIAGNOSTIC 1 EACH STRIP IN SCH ×4 (07:54→22:04)
[2022-08-12] MEDS: INSULIN REGULAR, HUMAN 100 UNIT/ML 3 ML VIAL SQ PRN ×3 (08:16→12:22)
[2022-08-12] MEDS ORDERED: PANTOPRAZOLE 40 MG TABLET.DR PO ONE (09:00)
--- NOTE | 2022-08-12 10:22 | NUR ---
nafisa rn note rounds made all needs attended not in distress
[2022-08-12] MEDS ORDERED: BRIM5DRO5 EACHEYE (11:03)
[2022-08-12] MEDS ORDERED: DOCU-141 PO (11:03)
[2022-08-12] MEDS ORDERED: FOLI0.8T2 PO (11:03)
[2022-08-12] MEDS ORDERED: ESCI10TA PO (11:03)
[2022-08-12] MEDS ORDERED: TRAM50TA2 PO (11:03)
[2022-08-12] MEDS ORDERED: FAMO20TA8 PO (11:03)
[2022-08-12] MEDS ORDERED: PANT40TA2 PO (11:03)
[2022-08-12] MEDS ORDERED: BENZ-13 PO (11:03)
[2022-08-12] MEDS ORDERED: CHOL100043 PO (11:03)
[2022-08-12] MEDS ORDERED: CLON0.1T PO (11:03)
[2022-08-12] MEDS ORDERED: LOSA100T3 PO (11:03)
[2022-08-12] MEDS ORDERED: CARV12.52 PO (11:03)
[2022-08-12] MEDS ORDERED: CYAN25003 SL (11:03)
[2022-08-12] MEDS ORDERED: CRAN500T3 PO (11:03)
[2022-08-12] MEDS ORDERED: TRAZ-182 PO (11:03)
[2022-08-12] MEDS ORDERED: SUCR500T PO (11:03)
[2022-08-12] MEDS ORDERED: FLUT16SP16 (11:03)
[2022-08-12] MEDS ORDERED: ALBU18HF2 IH (11:03)
[2022-08-12] MEDS ORDERED: HYDR100T27 PO (11:03)
[2022-08-12] MEDS ORDERED: LACT10SO3 PO (11:03)
[2022-08-12] MEDS ORDERED: ASPI-1420 PO (11:03)
[2022-08-12] MEDS ORDERED: PROC-11 PO (11:03)
[2022-08-12] MEDS ORDERED: NPH,100V SQ ×2 (11:03)
[2022-08-12] MEDS ORDERED: IPRA42SP (11:03)
[2022-08-12] MEDS ORDERED: TIMO5DRO18 EACHEYE (11:03)
[2022-08-12] MEDS ORDERED: ACET-2605 PO (11:03)
[2022-08-12] MEDS ORDERED: OMEG10006 PO (11:03)
[2022-08-12] MEDS ORDERED: SENN-261 PO (11:03)
[2022-08-12] MEDS ORDERED: LATA2.5D15 EACHEYE (11:03)
--- NOTE | 2022-08-12 11:13 | NUR ---
television operator note dr peña notified that k 5.5 no new order given also aware that daughter wants to talk with him phone number given will f\u
--- NOTE | 2022-08-12 13:32 | NUR ---
teletype telegrapher note per dr camilla godoy to discharge also per dr uyen godoy to have hd today Addendum: 08/12/22 at 1333 by DIRK BRAVO RN patient will be discharger after hd tx
--- NOTE | 2022-08-12 13:45 | NUR ---
nafisa rn note pt at bedside still needs assistance with ambulating with using a walker
--- NOTE | 2022-08-12 14:14 | NUR ---
nafisa rn note on hd as ordered
[2022-08-12 15:23] LABS: HEMOGLOBIN 6.9 g/dL (11.5-14.8)
--- NOTE | 2022-08-12 15:57 | NUR ---
telephone answering service operator note called to dr sampson that hg now 6.9 and c\o chest pain ordered 1 unit prbc and trop and ekg stat order carried out
--- NOTE | 2022-08-12 15:58 | NUR ---
nafisa rn note hd nurse at bedside ok to transfuse 1 unit prbc with hd ,per dr sampson order to transfuse by hd nurse
--- NOTE | 2022-08-12 16:00 | NUR ---
television picture tube rebuilder note reported ekg result no new order given at this time
--- NOTE | 2022-08-12 16:14 | NUR ---
telephone maintenance mechanic note blood transfusion doing now by hd nurse, will monitor
--- NOTE | 2022-08-12 16:43 | NUR ---
telephone repairer note hd completed 1l out no blood transfusion reaction noted 1 unit prbc infused by hd nurse
--- NOTE | 2022-08-12 17:40 | NUR ---
DIVISION SALES MANAGER NOTE AV FISTULA WAS BLEEDING AFTER HD , HD NURSE PLACED PRESSURE DRESSING, WILL MONITOR FOR BLEEDING
--- NOTE | 2022-08-12 17:51 | NUR ---
ALYSSIA RN NOTE REPORTED TO DR PRICE TROPONIN 16, NO NEW ORDER GIVEN ALSO REPORTED THAT AV FISTULA WAS BLEEDING AGAIN AFTER HD BUT BLEEDING STOPPED BY HD NURSE BY APPLIED PRESSURE DRESSING , DR PRICE WANTS US TO INFORM DR RANDOLPH , CALLED TO DR RANDOLPH VASCULAR DOCTOR LEFT A MESSAGE , WILL AWAIT FOR RETURN CALL
--- NOTE | 2022-08-12 18:51 | NUR ---
ALYSSIA CLOSING NOTES PT AWAKE. A&O X 4, ON RA SATURATION 99%, NO SIGNS OF RESPIRATORY DISTRESS. NSR HR 75. LEFT AC FLUSHED WELL AND INTACT. AV FISTULA WITH DRY DRESSING AT THIS TIME, NO BLEEDING NOTED, WILL BE ENDORSED TO THE NEXT SHIFT FOR MONITORING. NEXT H&H AT 22:30. ABLE TO EAT BY HERSELF. SAFETY MEASURES IMPLEMENTED, CALL LIGHT WITHIN REACH. FAMILY AT THE BEDSIDE, CONTINUE TO MONITOR CLOSELY.
[2022-08-12] MEDS: *INSULIN REGULAR(HUMULIN R)HUM 100 UNIT/ML VIAL SQ PRN (21:29)
[2022-08-12 22:48] LABS: HEMOGLOBIN 9.3 g/dL (11.5-14.8)
[2022-08-13] VITALS: BP 131/59
[2022-08-13 04:00] VITALS: BP 126/65
[2022-08-13 07:05] LABS: HEMOGLOBIN 9.9 g/dL (11.5-14.8)
--- NOTE | 2022-08-13 07:30 | NUR ---
ALYSSIA OPENING NOTES PT AWAKE. A&O X 4, ON RA SATURATION 99%, NO SIGNS OF RESPIRATORY DISTRESS. NSR HR 73. LEFT AC FLUSHED WELL AND INTACT. AV FISTULA WITH DRY DRESSING AT THIS TIME, NO BLEEDING NOTED, WILL BE ENDORSED TO THE NEXT SHIFT FOR MONITORING. NEXT H&H AT 14:30. ABLE TO EAT BY HERSELF. SAFETY MEASURES IMPLEMENTED, CALL LIGHT WITHIN REACH. CONTINUE TO MONITOR CLOSELY.
[2022-08-13] MEDS: BLOOD SUGAR DIAGNOSTIC 1 EACH STRIP IN SCH ×2 (07:49→11:48)
[2022-08-13 09:00] VITALS: BP 120/40
[2022-08-13] MEDS: INSULIN REGULAR, HUMAN 100 UNIT/ML 3 ML VIAL SQ PRN ×2 (09:04→12:29)
[2022-08-13 09:14] VITALS: BP 120/40
--- NOTE | 2022-08-13 11:02 | NUR ---
RN NOTE REPORT GIVEN TO MARYAN FOR CONTINUITY OF CARE. PT PLANNED FOR DISCHARGE
--- NOTE | 2022-08-13 11:05 | NUR ---
garbage collector NOTE Received handover from RN Julianna Cheema. Patient is alert and oriented, resting in bed without active complaint. Telemetry showed SR HR 70s/min. Will continue discharge arrangemet.
[2022-08-13] MEDS ORDERED: NEPRO VAN 237 ML CAN PO PRN (11:30)
--- NOTE | 2022-08-13 12:25 | NUR ---
oven dauber Note Blood sugar 261, informed. Dr Sheldon Avila. He ordered stat dose of 10U Humulin N on top of the regular short-acting insulin according to sliding scale.
[2022-08-13] MEDS ORDERED: INSULIN NPH, HUMAN ISOPHANE 100 UNIT/ML VIAL SQ STA (12:34)
--- NOTE | 2022-08-13 14:42 | NUR ---
manager transplant NOTE Patient is for discharge. Checked the wound over right upper arm AVF, the stitch is in-situ with no oozing from that wound. Noted a minimal oozing from a distal site. Applied pressure dressing and advised patient to keep the wound dry and intact until the next dialysis session. She showed understanding. Confirmed with patient's daughter that patient willl have a dialysis session on Tuesday. Patient is discharged with 's accompany. Left in stable condition.
== END 2022-08-13 14:30 | disposition home or self-care (01) | DRG 252 ==
LOC: ER 12:08 → TELE1 16:29 → TELE-TD 16:54 → TELE1 08-12 20:09
PROVIDERS: ADMIT Internal Medicine; ATTEND Internal Medicine
PROC: 03LY0ZZ Occlusion of Upper Artery, Open Approach (ICD-10-PCS; principal; 2022-08-11)
PROC: 05LY0ZZ Occlusion of Upper Vein, Open Approach (ICD-10-PCS; 2022-08-11)
PROC: 30233N1 Transfusion of Nonautologous Red Blood Cells into Peripheral Vein, Percutaneous Approach (ICD-10-PCS; 2022-08-11)
PROC: 5A1D70Z Performance of Urinary Filtration, Intermittent, Less than 6 Hours Per Day (ICD-10-PCS; 2022-08-12)
DX: T82.838A Hemorrhage due to vascular prosthetic devices, implants and grafts, initial encounter (principal); N18.6 End stage renal disease; I12.0 Hypertensive chronic kidney disease with stage 5 chronic kidney disease or end stage renal disease; E44.0 Moderate protein-calorie malnutrition; E87.20 Acidosis, unspecified; Y83.2 Surgical operation with anastomosis, bypass or graft as the cause of abnormal reaction of the patient, or of later complication, without mention of misadventure at the time of the procedure; Y92.009 Unspecified place in unspecified non-institutional (private) residence as the place of occurrence of the external cause; E78.5 Hyperlipidemia, unspecified; F03.90 Unspecified dementia, unspecified severity, without behavioral disturbance, psychotic disturbance, mood disturbance, and anxiety; E11.22 Type 2 diabetes mellitus with diabetic chronic kidney disease; E11.65 Type 2 diabetes mellitus with hyperglycemia; Z88.6 Allergy status to analgesic agent; Z88.5 Allergy status to narcotic agent; Z79.84 Long term (current) use of oral hypoglycemic drugs; Z79.82 Long term (current) use of aspirin; Z79.899 Other long term (current) drug therapy; D64.9 Anemia, unspecified; R74.8 Abnormal levels of other serum enzymes; E83.39 Other disorders of phosphorus metabolism; E88.09 Other disorders of plasma-protein metabolism, not elsewhere classified; I70.0 Atherosclerosis of aorta; M89.8X9 Other specified disorders of bone, unspecified site; Z99.2 Dependence on renal dialysis
CPT/HCPCS: 36415; 70450-TC; 71045-TC; 80048-TC; 80053-TC; 80076-TC; 82962-TC; 83605-TC; 83735-TC; 84100-TC; 84132-TC; 84484-TC; 85025-TC; 85027-TC; 85730-TC; 86850-TC; 87040-TC; 87081-TC; 90935-TC; 97530-TC; A4223; A6403; C9803; G0378; J0696; J1815; J2405; J3370; J7030; J7050; J7060; P9016

== ENCOUNTER 2023-08-30 13:11 | Inpatient (IN) | payer OTHER ==
[~2023-08-30] VITALS: Ht 154.9 cm; Wt 45.8 kg
[~2023-08-30 13:11] MED LIST changes: +ACET-2605 PO; +ALBU18HF2 IH; -ASPI-1169 PO; +ASPI-1420 PO; +BENZ-13 PO; +BRIM5DRO5 EACHEYE; -CALC667C6 PO; +CARV12.52 PO; +CHOL100043 PO; +CLON0.1T PO; +CRAN500T3 PO; +CYAN25003 SL; +DOCU-141 PO; -DONE5TAB7 PO; +ESCI10TA PO; +FAMO20TA8 PO; +FLUT16SP16; +FOLI0.8T2 PO; +HYDR100T27 PO; +IPRA42SP; +LACT10SO3 PO; +LATA2.5D15 EACHEYE; +LOSA100T3 PO; -METO-358 PO; +NPH,100V SQ; -OLAN5TAB6 PO; +OMEG10006 PO; -OMEP20TA5 PO; +PANT40TA2 PO; +PROC-11 PO; +SENN-261 PO; +SUCR500T PO; +TIMO5DRO18 EACHEYE; +TRAM50TA2 PO; +TRAZ-182 PO
[2023-08-30 14:19] LABS: BASOPHILS # (AUTO) 0.1 K/uL (0.0-0.2); BASOPHILS % (AUTO) 1.2 % (0.0-2.0); EOSINOPHILS # (AUTO) 0.1 K/uL (0.0-0.7); EOSINOPHILS % (AUTO) 2.9 % (0.0-6.0); HEMATOCRIT 32 % (33-45); HEMOGLOBIN 10.5 g/dL (11.5-14.8); LYMPHOCYTES # (AUTO) 0.7 K/uL (0.8-4.8); LYMPHOCYTES % (AUTO) 16.8 % (20.0-44.0); MEAN CORPUSCULAR HEMOGLOBIN 31 PG (26.0-33.0); MEAN CORPUSCULAR HGB CONC 33 g/dl (31.0-36.0); MEAN CORPUSCULAR VOLUME 96 fL (82-100); MONOCYTES # (AUTO) 0.5 K/uL (0.1-1.30); MONOCYTES % (AUTO) 12.3 % (2.0-12.0); NEUTROPHILS # (AUTO) 2.8 K/uL (1.8-8.9); NEUTROPHILS % (AUTO) 66.8 % (43.0-81.0); PLATELET COUNT (AUTO) 174 K/uL (150-450); RED BLOOD CELL COUNT(AUTO) 3.34 MIL/uL (4.0-5.2); RED CELL DISTRIBUTION WIDTH 16.5 % (11.5-15.0); WHITE BLOOD COUNT (AUTO) 4.1 K/uL (4.3-11.0)
[2023-08-30 15:20] LABS: CALCIUM, SERUM 8.8 mg/dL (8.5-10.1); CARBON DIOXIDE 25 mmol/L (21-32); CHLORIDE 99 mmol/L (98-107); CREATININE 3.9 mg/dL (0.6-1.3); GLUCOSE 173 mg/dL (74-106); POTASSIUM 3.7 mmol/L (3.5-5.1); SODIUM SERUM 134 mmol/L (136-145); UREA NITROGEN, BLOOD 12 mg/dL (7-18)
[2023-08-30 15:33] LABS: ALANINE AMINOTRANSFERASE 12 U/L (12-78); ALBUMIN 2.4 g/dL (3.4-5.0); ALKALINE PHOSPHATASE 72 U/L (46-116); ASPARTATE AMINOTRANSFERASE 16 U/L (15-37); BILIRUBIN,DIRECT 0.1 mg/dL (0.0-0.2); BILIRUBIN,TOTAL 0.5 mg/dL (0.2-1.0); NT-PRO BNP 8229 pg/mL (0-125); TOTAL PROTEIN, SERUM 5.5 g/dL (6.4-8.2)
[2023-08-30] MEDS: NITROGLYCERIN 0.4 MG/TAB BOTTLE SL ONE (17:02)
[2023-08-31] MEDS ORDERED: NALT50TA PO (00:59)
[2023-08-31] MEDS ORDERED: ONDANSETRON HCL/PF 4 MG/2 ML VIAL IVP PRN (02:00)
[2023-08-31] MEDS ORDERED: MAGNESIUM HYDROXIDE 30 ML UDC PO PRN (02:00)
[2023-08-31] MEDS ORDERED: MAG HYDROX/AL HYDROX/SIMETH 30 ML UDC PO PRN (02:00)
[2023-08-31] MEDS ORDERED: ZOLPIDEM TARTRATE 5 MG TABLET PO PRN (02:00)
[2023-08-31] MEDS ORDERED: ACETAMINOPHEN 325 MG TABLET PO PRN (02:00)
[2023-08-31] MEDS ORDERED: Z GUARD REMEDY 4 OZ OINT TP PRN (02:00)
[2023-08-31] MEDS ORDERED: PANTOPRAZOLE 40 MG TABLET.DR PO PRN (02:30)
[2023-08-31] MEDS ORDERED: FAMOTIDINE (20 MG) 20 MG TABLET PO PRN (02:30)
[2023-08-31] MEDS ORDERED: ALBUTEROL FS 2.5 MG/3 ML VIAL.NEB NEB PRN (02:30)
[2023-08-31 03:15] VITALS: BP 154/58; TEMP 98.2; O2SAT 100
[2023-08-31 04:00] VITALS: BP 175/61; TEMP 97.7; O2SAT 100
[2023-08-31] MEDS: CLONIDINE HCL 0.1 MG TABLET PO PRN (06:18)
[2023-08-31 08:00] VITALS: BP 118/52; TEMP 98.2; O2SAT 100
[2023-08-31] MEDS: FLUTICASONE PROPIONATE 16 GM BOTTLE NS SCH (08:38)
[2023-08-31] MEDS: IPRATROPIUM BROMIDE 0.06% 15 ML NASPR NS SCH (08:38)
[2023-08-31] MEDS: BRIMONIDINE TARTRATE OPHT SOLN 5 ML BOTTLE EACHEYE SCH (08:38)
[2023-08-31] MEDS: ASPIRIN EC 81 MG TABLET.DR PO SCH (08:39)
[2023-08-31] MEDS ORDERED: BISA10SU11 RC (08:40)
[2023-08-31] MEDS ORDERED: AMIN887L7 PO (08:40)
[2023-08-31] MEDS ORDERED: ACET-868 PO (08:40)
[2023-08-31] MEDS ORDERED: ONDA8TAB65 SL (08:40)
[2023-08-31] MEDS ORDERED: TRAZ-182 PO (08:40)
[2023-08-31] MEDS ORDERED: FOLI0.8T23 PO (08:40)
[2023-08-31] MEDS ORDERED: NUTR100037 PO (08:40)
[2023-08-31] MEDS ORDERED: TYL2T PO (08:40)
[2023-08-31] MEDS ORDERED: NUT.237L31 PO (08:40)
[2023-08-31] MEDS ORDERED: CAPS42.513 TP (08:40)
[2023-08-31] MEDS ORDERED: INSU100V28 SQ (08:40)
[2023-08-31] MEDS: INSULIN NPH, HUMAN ISOPHANE 100 UNIT/ML VIAL SQ SCH (08:48)
[2023-08-31] MEDS: CARVEDILOL 12.5 MG TABLET PO SCH (08:50)
[2023-08-31] MEDS ORDERED: NEPRO VAN 237 ML CAN PO PRN (10:00)
[2023-08-31 10:20] LABS: CHOLESTEROL 172 mg/dL (<200); HDL CHOLESTEROL 71 mg/dL (40-60); LDL 61 mg/dL (0-99); TRIGLYCERIDES 118 mg/dL (30-150)
[2023-08-31] MEDS: ATORVASTATIN 10 MG TABLET PO SCH (11:49)
[2023-08-31] MEDS: TIMOLOL 0.5% SOLN OPHTH 5 ML BOTTLE EACHEYE SCH (11:49)
[2023-08-31 12:00] VITALS: BP 132/60; TEMP 97.7; O2SAT 100
[2023-08-31 16:00] VITALS: BP 147/58; TEMP 97.4; O2SAT 100
[2023-08-31] MEDS ORDERED: KEY,NONCONTROL,TO KEEP IN PYXI 1 EA MC ONE (19:26)
[2023-08-31] MEDS ORDERED: TRAZODONE 50 MG TABLET PO SCH (22:00)
[2023-08-31] MEDS ORDERED: LATANOPROST EYE DROP 0.005% 2.5 ML BOTTLE EACHEYE SCH (22:00)
[2023-09-01 08:07] LABS: HEPATITIS B CORE AB, IgM Negative (Negative); HEPATITIS B CORE AB, TOTAL Negative (Negative); HEPATITIS B SURFACE AB Reactive (.); HEPATITIS Be AG Negative (Negative)
== END 2023-08-31 20:31 | disposition short-term general hospital (02) | DRG 311 ==
LOC: ER 13:11 → TELE1 08-31 01:14
PROVIDERS: ADMIT Nurse Practitioner Family; ATTEND Internal Medicine
DX: I24.9 Acute ischemic heart disease, unspecified (principal); N18.6 End stage renal disease; I12.0 Hypertensive chronic kidney disease with stage 5 chronic kidney disease or end stage renal disease; E87.1 Hypo-osmolality and hyponatremia; F02.83 Dementia in other diseases classified elsewhere, unspecified severity, with mood disturbance; E11.22 Type 2 diabetes mellitus with diabetic chronic kidney disease; Z99.2 Dependence on renal dialysis; Z79.4 Long term (current) use of insulin; R79.89 Other specified abnormal findings of blood chemistry; Z86.73 Personal history of transient ischemic attack (TIA), and cerebral infarction without residual deficits; Z79.899 Other long term (current) drug therapy; Z88.6 Allergy status to analgesic agent; Z79.84 Long term (current) use of oral hypoglycemic drugs; E78.5 Hyperlipidemia, unspecified; D72.819 Decreased white blood cell count, unspecified; D64.9 Anemia, unspecified; M89.8X9 Other specified disorders of bone, unspecified site; G30.9 Alzheimer's disease, unspecified; K58.9 Irritable bowel syndrome, unspecified; Z88.7 Allergy status to serum and vaccine; Z88.8 Allergy status to other drugs, medicaments and biological substances
CPT/HCPCS: 36415; 71045-TC; 80048-TC; 80061-TC; 80076-TC; 82962-TC; 83880; 84484-TC; 85025-TC; 86704; 86705; 86706; 86707; 86803; 87340; 87350; 93307-TC; 97110-TC; 97530-TC; G0378; J1815

== ENCOUNTER 2024-04-23 07:07 | Inpatient (IN) | payer OTHER, MEDICAID ==
[~2024-04-23] VITALS: Ht 154.9 cm; Wt 54.4 kg
[~2024-04-23 07:07] MED LIST changes: -ACET-2605 PO; +ACET-868 PO; +AMIN887L7 PO; -BENZ-13 PO; +BISA10SU11 RC; +CAPS42.513 TP; -CRAN500T3 PO; -CYAN25003 SL; -ESCI10TA PO; -FLUT16SP16; +FLUT16SP16 BNOSTRILS; -FOLI0.8T2 PO; +FOLI0.8T23 PO; -GLIP10TA11 PO; +INSU100V28 SQ; -IPRA42SP; +IPRA42SP BNOSTRILS; +NALT50TA PO; +NUT.237L31 PO; +NUTR100037 PO; -OMEG10006 PO; +ONDA8TAB65 SL; -PROC-11 PO; -SENN-261 PO; -TRAM50TA2 PO; +TYL2T PO
[2024-04-23 07:48] LABS: BASOPHILS % (AUTO) 0.6 % (0.0-2.0); EOSINOPHILS # (AUTO) 0.1 K/uL (0.0-0.7); HEMATOCRIT 35 % (33-45); HEMOGLOBIN 11.5 g/dL (11.5-14.8); LYMPHOCYTES # (AUTO) 0.5 K/uL (0.8-4.8); LYMPHOCYTES % (AUTO) 7.9 % (20.0-44.0); MEAN CORPUSCULAR HEMOGLOBIN 31 PG (26.0-33.0); MEAN CORPUSCULAR HGB CONC 33 g/dl (31.0-36.0); MEAN CORPUSCULAR VOLUME 95 fL (82-100); MONOCYTES # (AUTO) 0.3 K/uL (0.1-1.30); MONOCYTES % (AUTO) 4.6 % (2.0-12.0); NEUTROPHILS # (AUTO) 5.5 K/uL (1.8-8.9); NEUTROPHILS % (AUTO) 85.9 % (43.0-81.0); PLATELET COUNT (AUTO) 288 K/uL (150-450); RED BLOOD CELL COUNT(AUTO) 3.68 MIL/uL (4.0-5.2); RED CELL DISTRIBUTION WIDTH 19.9 % (11.5-15.0); WHITE BLOOD COUNT (AUTO) 6.4 K/uL (4.3-11.0)
[2024-04-23 08:02] LABS: INR 1.11 (0.91-1.10); PARTIAL THROMBOPLASTIN TIME 29.9 SEC (24.3-34.3); PROTHROMBIN TIME 11.7 SECS (9.2-11.1)
[2024-04-23 08:06] LABS: LACTIC ACID 1.6 mmol/L (0.4-2.0)
[2024-04-23 08:09] LABS: CARBON DIOXIDE 27 mmol/L (21-32); CHLORIDE 97 mmol/L (98-107); CREATININE 6.6 mg/dL (0.6-1.3); GLUCOSE 247 mg/dL (74-106); POTASSIUM 4.7 mmol/L (3.5-5.1); SODIUM SERUM 137 mmol/L (136-145); UREA NITROGEN, BLOOD 58 mg/dL (7-18)
[2024-04-23 08:24] LABS: ALANINE AMINOTRANSFERASE 17 U/L (12-78); ALBUMIN 3.5 g/dL (3.4-5.0); ALKALINE PHOSPHATASE 94 U/L (46-116); ASPARTATE AMINOTRANSFERASE 17 U/L (15-37); BILIRUBIN,DIRECT 0.3 mg/dL (0.0-0.2); TOTAL PROTEIN, SERUM 7.5 g/dL (6.4-8.2)
[2024-04-23] MEDS ORDERED: NA P133E RC (09:07)
[2024-04-23] MEDS ORDERED: GLIP5TAB13 PO (09:07)
[2024-04-23] MEDS ORDERED: CRAN425C6 PO (09:07)
[2024-04-23] MEDS ORDERED: POLY17PO4 PO (09:07)
[2024-04-23] MEDS ORDERED: HYDR100T27 PO (09:07)
[2024-04-23] MEDS ORDERED: HYDR30CR79 RC (09:07)
[2024-04-23] MEDS ORDERED: ONDA4TAB5 PO (09:07)
[2024-04-23] MEDS ORDERED: FURO-144 PO (09:07)
[2024-04-23] MEDS: PIPERACILLIN /TAZOBACTAM 3.375 G in IV D5W 50 ML IV ONE (09:42)
[2024-04-23] MEDS: VANCOMYCIN 1 GM in IV D5W 250 ML IV ONE (09:51)
[2024-04-23 11:00] LABS: APPEARANCE,URINE TURBID (CLEAR); BILIRUBIN,URINE 2+ (NEGATIVE); BLOOD, URINE 3+ Ery/uL (NEGATIVE); COLOR,URINE BROWN (YELLOW); KETONES,URINE 1+ mg/dL (NEGATIVE); LEUKOCYTE ESTERASE ,URINE 2+ (NEGATIVE); NITRITE, URINE POSITIVE (NEGATIVE); PH,URINE 8.5 (5.0-8.0); PROTEIN,URINE 3+ mg/dl (NEGATIVE); UGLUCOSE 2+ mg/dL (NEGATIVE)
[2024-04-23] MEDS ORDERED: CEFTRIAXONE 1GM BAG (ER ONLY) 1 GM/50 ML PIGGYBACK IV ONE (11:30)
[2024-04-23 11:32] LABS: WBC,URINE 51-80 /HPF (0-3)
[2024-04-23 11:33] LABS: ADD URINE CULTURE YES; BACTERIA,URINE 1+ /HPF (None Seen); MUCUS,URINE Few /LPF (None Seen); RBC,URINE 81-100 /HPF (0-2)
[2024-04-23] MEDS: CEFTRIAXONE 1 G in IV D5W 50 ML IV ONE (11:43)
[2024-04-23] MEDS ORDERED: ALBUTEROL FS 2.5 MG/0.5 ML VIAL.NEB NEB PRN (12:30)
[2024-04-23] MEDS ORDERED: PANTOPRAZOLE 40 MG TABLET.DR PO PRN (12:30)
[2024-04-23] MEDS ORDERED: DEXTROSE 50%-WATER 50 ML DISP.SYRIN IV PRN (12:30)
[2024-04-23] MEDS ORDERED: ONDANSETRON HCL/PF 4 MG/2 ML VIAL IVP PRN (12:30)
[2024-04-23] MEDS ORDERED: MAGNESIUM HYDROXIDE 30 ML UDC PO PRN (12:30)
[2024-04-23] MEDS ORDERED: MORPHINE SULFATE INJ 2 MG/ML DISP.SYRIN IV PRN (12:30)
[2024-04-23] MEDS ORDERED: ACETAMINOPHEN 325 MG TABLET PO PRN (12:30)
[2024-04-23] MEDS ORDERED: hydrALAZINE HCL 50 MG TABLET ONE (12:53)
[2024-04-23] MEDS ORDERED: AMLODIPINE BESYLATE 5 MG TABLET ONE (12:54)
[2024-04-23] MEDS ORDERED: CLONIDINE HCL 0.1 MG TABLET ONE (12:55)
[2024-04-23] MEDS ORDERED: LOSARTAN POTASSIUM 50 MG TABLET ONE (12:55)
[2024-04-23] MEDS ORDERED: GLUCERNA 1.5 1,000 ML BOTTLE PEG SCH (13:00)
[2024-04-23] MEDS: hydrALAZINE HCL 25 MG TABLET PO ONE (13:11)
[2024-04-23] MEDS: CLONIDINE HCL 0.1 MG TABLET PO ONE (13:12)
[2024-04-23] MEDS: LOSARTAN POTASSIUM 25 MG TABLET PO ONE (13:12)
[2024-04-23] MEDS: AMLODIPINE BESYLATE 5 MG TABLET PO ONE (13:13)
[2024-04-23] MEDS ORDERED: LACTULOSE 10 G/15 ML UDC (PYXIS) PO PRN (14:00)
[2024-04-23 14:30] VITALS: BP 180/71; TEMP 97.7; O2SAT 96
[2024-04-23] MEDS: hydrALAZINE HCL IV 20 MG VIAL IV PRN (15:50)
[2024-04-23] MEDS ORDERED: VANCOMYCIN POST DIALYSIS 500MG IV PRN (16:00)
[2024-04-23] MEDS ORDERED: PROSTAT (PYXIS) 30 ML UDC PO SCH (17:00)
[2024-04-23] MEDS: TIMOLOL 0.5% SOLN OPHTH 5 ML BOTTLE EACHEYE SCH (17:33)
[2024-04-23] MEDS: BRIMONIDINE TARTRATE OPHT SOLN 5 ML BOTTLE EACHEYE SCH (17:33)
[2024-04-23] MEDS: DOCUSATE SODIUM 100 MG CAPSULE PO SCH (17:34)
[2024-04-23] MEDS: AMLODIPINE BESYLATE 10 MG TABLET PO SCH (17:34)
[2024-04-23] MEDS: FUROSEMIDE 40 MG TABLET PO SCH (17:35)
[2024-04-23] MEDS: LOSARTAN POTASSIUM 50 MG TABLET PO SCH (17:35)
[2024-04-23] MEDS: CARVEDILOL 12.5 MG TABLET PO SCH (17:35)
[2024-04-23] MEDS: GLUCERNA SHAKE 237 ML CAN PO SCH (17:36)
[2024-04-23] MEDS: BLOOD SUGAR DIAGNOSTIC 1 EACH STRIP IN SCH (17:37)
[2024-04-23] MEDS: INSULIN REGULAR, HUMAN 100 UNIT/ML 3 ML VIAL SQ PRN (17:38)
[2024-04-23] MEDS: CEFEPIME 1 GM in IV D5W 50 ML IV SCH (17:50)
[2024-04-23 19:00] VITALS: BP 135/74; O2SAT 97
[2024-04-23] MEDS ORDERED: ALBUTEROL FS 2.5 MG/3 ML VIAL.NEB NEB SCH (19:30)
[2024-04-23] MEDS ORDERED: IPRATROPIUM NEB FS 0.5 MG/2.5 ML AMPUL.NEB NEB SCH (19:30)
[2024-04-23 20:00] VITALS: BP 141/66; TEMP 97.5; O2SAT 100
[2024-04-23] MEDS: hydrALAZINE HCL 50 MG TABLET PO SCH (21:00)
[2024-04-23] MEDS: ATORVASTATIN 10 MG TABLET PO SCH (22:38)
[2024-04-23] MEDS: HEPARIN SODIUM, PORCINE 5000 UNITS/1 ML VIAL SQ SCH (22:38)
[2024-04-24] VITALS (7 sets, daily range): BP systolic 149–179; BP diastolic 62–95; TEMP 97.9–99; O2SAT 94–98
[2024-04-24 06:42] LABS: BASOPHILS # (AUTO) 0.1 K/uL (0.0-0.2); EOSINOPHILS # (AUTO) 0.1 K/uL (0.0-0.7); EOSINOPHILS % (AUTO) 1.5 % (0.0-6.0); HEMATOCRIT 34 % (33-45); HEMOGLOBIN 11.1 g/dL (11.5-14.8); LYMPHOCYTES # (AUTO) 0.5 K/uL (0.8-4.8); LYMPHOCYTES % (AUTO) 8.5 % (20.0-44.0); MEAN CORPUSCULAR HEMOGLOBIN 31 PG (26.0-33.0); MEAN CORPUSCULAR HGB CONC 33 g/dl (31.0-36.0); MEAN CORPUSCULAR VOLUME 94 fL (82-100); MONOCYTES # (AUTO) 0.4 K/uL (0.1-1.30); MONOCYTES % (AUTO) 6.5 % (2.0-12.0); NEUTROPHILS # (AUTO) 4.8 K/uL (1.8-8.9); NEUTROPHILS % (AUTO) 82.5 % (43.0-81.0); PLATELET COUNT (AUTO) 236 K/uL (150-450); RED BLOOD CELL COUNT(AUTO) 3.63 MIL/uL (4.0-5.2); WHITE BLOOD COUNT (AUTO) 5.8 K/uL (4.3-11.0)
[2024-04-24 06:54] LABS: BILIRUBIN,TOTAL 1.2 mg/dL (0.2-1.0); CALCIUM, SERUM 9.4 mg/dL (8.5-10.1); CREATININE 4.7 mg/dL (0.6-1.3); PHOSPHORUS 4.6 mg/dL (2.5-4.9); POTASSIUM 4.3 mmol/L (3.5-5.1); TOTAL PROTEIN, SERUM 6.8 g/dL (6.4-8.2)
[2024-04-24] MEDS: ASPIRIN EC 81 MG TABLET.DR PO SCH (08:35)
[2024-04-24] MEDS: CHOLECALCIFEROL 1,000 UNIT TABLET (VIT D3) PO SCH (08:35)
[2024-04-24] MEDS: POLYETHYLENE GLYCOL 3350 17 GM POWD.PACK PO SCH (08:36)
[2024-04-24] MEDS: PROSOURCE / PROSTAT (PYXIS) 30 ML UDC PO SCH (08:38)
[2024-04-24] MEDS: CLONIDINE HCL 0.1 MG TABLET PO PRN (18:43)
== END 2024-04-24 18:30 | disposition short-term general hospital (02) | DRG 193 ==
LOC: ER 07:15 → TELE 13:52
PROVIDERS: ADMIT Internal Medicine; ATTEND Internal Medicine
PROC: 5A1D70Z Performance of Urinary Filtration, Intermittent, Less than 6 Hours Per Day (ICD-10-PCS; principal; 2024-04-23)
DX: J18.9 Pneumonia, unspecified organism (principal); G93.41 Metabolic encephalopathy; J96.00 Acute respiratory failure, unspecified whether with hypoxia or hypercapnia; N18.6 End stage renal disease; N39.0 Urinary tract infection, site not specified; I12.0 Hypertensive chronic kidney disease with stage 5 chronic kidney disease or end stage renal disease; D64.9 Anemia, unspecified; E11.22 Type 2 diabetes mellitus with diabetic chronic kidney disease; Z79.4 Long term (current) use of insulin; Z86.73 Personal history of transient ischemic attack (TIA), and cerebral infarction without residual deficits; Z99.2 Dependence on renal dialysis; M89.8X9 Other specified disorders of bone, unspecified site; K21.9 Gastro-esophageal reflux disease without esophagitis; Z20.822 Contact with and (suspected) exposure to COVID-19; Z79.84 Long term (current) use of oral hypoglycemic drugs; B96.89 Other specified bacterial agents as the cause of diseases classified elsewhere; G30.9 Alzheimer's disease, unspecified; F02.80 Dementia in other diseases classified elsewhere, unspecified severity, without behavioral disturbance, psychotic disturbance, mood disturbance, and anxiety
CPT/HCPCS: 36415; 70450-TC; 71045-TC; 80048-TC; 80053-TC; 80076-TC; 80202-TC; 81001; 82962-TC; 83605-TC; 83735-TC; 84100-TC; 84484-TC; 85025-TC; 85730-TC; 87040-TC; A4223; G0378; J0360; J0692; J0696; J1644; J1815; J2543; J3370; J7050; J7060